=== PATIENT | male | born 1985 | race Caucasian/White ===

== ENCOUNTER 2020-12-23 22:10 | Emergency (ER) | payer OTHER, SELFPAY ==
[2020-12-23 22:42] VITALS: BP 142/74; PULSE 105; RESP 16; TEMP 37.2; O2SAT 97; BMI 29.5
[2020-12-23 22:52] LABS: COVID-19 Test Negative (Negative)
--- NOTE | 2020-12-23 23:35 | ED.RECABL ---
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 Otherwise, he denies any fevers, chills, sore throat, cough, shortness of breath. He is requesting COVID-19 testing and then states he is concerned about possible infection in his arms and endorses that he uses cocaine and heroin with last usage just prior to arrival. Related Data Previous Rx's Medication Instructions Recorded sulfamethoxazole-trimethoprim 1 tab PO Q12H 7 Days #14 tab 12/23/20 [Bactrim DS] Allergies Allergy/AdvReac Type Severity Reaction Status Date / Time No Known Allergies Allergy Unverified 05/17/20 19:38 [No Known Allergies*] Review of Systems Review of Systems: Pertinent positives and negatives as stated in HPI 10 point review of systems is otherwise negative. PMFSH Past Medical History Source: nursing notes reviewed Social History Social History Smoking Status: Current every day smoker Smoked in Last 30 Days: Yes Use of substances other than those prescribed or required for medical reasons: Yes Substance Use Type: Crack/Cocaine, Heroin, IV Drugs, Marijuana and Opiates Substance Use Frequency: Daily Last Used Substance: Just Prior to Admission Advance Directives: No Advance Directives Information Provided: No Physical Exam Vital Signs: Vital Signs: Last Vital Signs Temp 99.0 F 12/23/20 22:42 Pulse 105 H 12/23/20 22:42 Resp 16 12/23/20 22:42 BP 142/74 H 12/23/20 22:42 Pulse Ox 97 12/23/20 22:42 Body Mass Index 29.5 VITAL SIGNS: Reviewed. GENERAL: Well developed, well nourished, in no acute distress. HEAD: Normocephalic/atraumatic EYES: PERRLA, EOMI EARS: Ext canals without abnormality NOSE: Nares patent bilateral OROPHARYNX: no oral lesions noted, posterior pharynx clear NECK: Supple, no adenopathy LUNGS: Normal breath sounds. SpO2<97> CARDIOVASCULAR: Regular rate and rhythm without noted murmurs ABDOMEN: Soft, non-tender, non-distended with bowel sounds. BILATERAL UPPER EXTREMITIES: Mild erythema over injection sites without any notable fluctuance NEUROLOGIC: Alert and oriented x 4. Course Course Course Narrative: This is a 35-year-old male with history and clinical presentation of questionable COVID-19 exposure and requesting testing. On review of results patient is noted to be COVID-19 negative, however he was counseled that he would need to repeat the COVID-19 testing in 3-4 days. Although there is mild cellulitis noted to left upper extremity there is no noted abscess and extremity is otherwise neurovascularly intact. Patient received initial antibiotics here in the emergency department and then will be discharged home with remaining course. MDM - Recheck/Abnormal Lab/Rx Lab Data Labs: Lab Results 12/23/20 Range/Units 22:32 COVID-19 ([facility]) Negative (Negative) COVID-19 Clin Com See Note Discharge Plan Discharge Clinical Impression: Encounter for laboratory testing for COVID-19 virus, Lab test negative for COVID-19 virus, Cellulitis Patient Disposition: Home, Self-Care Instructions: Cellulitis (ED), COVID-19 (Coronavirus Disease 2019) (ED) Additional Instructions: Return emergency department for any acute worsening of your symptoms. Prescriptions: New sulfamethoxazole-trimethoprim [Bactrim DS] 800-160 mg tablet 1 tab PO Q12H 7 Days Qty: 14 RF: 0
== END 2020-12-23 23:45 | disposition home or self-care (01) ==
PROVIDERS: Emergency Provider Student in an Organized Health Care Education/Training Program
DX: L03.114 Cellulitis of left upper limb (principal); Z20.822 Contact with and (suspected) exposure to COVID-19; F17.200 Nicotine dependence, unspecified, uncomplicated; F14.90 Cocaine use, unspecified, uncomplicated; F11.90 Opioid use, unspecified, uncomplicated; F12.90 Cannabis use, unspecified, uncomplicated
CPT/HCPCS: 36415; 87635; 99283; 99284